=== PATIENT | male | born 1965 | race Asian ===

== ENCOUNTER 2025-03-30 07:38 | Emergency (ER) | payer OTHER ==
[~2025-03-30] VITALS: Ht 170.2 cm; Wt 70.0 kg
[2025-03-30 07:41] VITALS: O2SAT 99
[2025-03-30 08:46] LABS: CREATININE 1.0 mg/dL (0.6-1.3)
[2025-03-30 08:47] LABS: TROPONIN I HIGH SENSITIVITY < 4 ng/L (3.0-53); UREA NITROGEN BLOOD 18 mg/dL (9-23)
[2025-03-30 08:48] LABS: ASPARTATE AMINOTRANSFERASE 42 IU/L (<34)
[2025-03-30 08:49] LABS: BILIRUBIN DIRECT < 0.1 mg/dL (<=3.0); BILIRUBIN TOTAL 0.2 mg/dL (0.1-1.0); PROTEIN TOTAL 6.4 g/dL (6.0-8.3)
[2025-03-30 08:53] LABS: BASOPHILS % 0.9 % (0.0-2.0); EOSINOPHILS % 2.6 % (0.0-5.0); HEMATOCRIT. 44.2 % (42.0-52.0); HEMOGLOBIN. 14.5 g/dL (14.0-18.0); LYMPHOCYTES % 30.6 % (20.0-50.0); MEAN PLATELET VOLUME 9.6 fl (7.4-10.4); MONOCYTES % 6.4 % (2.0-8.0); NEUTROPHILS % 59.5 % (40.0-76.0); PLATELET 155 x1000/uL (130-400); RED BLOOD CELL COUNT 4.71 mill/uL (4.7-6.1); RED CELL DISTRIBUTION WIDTH 14.6 % (11.6-14.6)
[2025-03-30 09:56] LABS: INFLUENZA TYPE A Presumptive Negative (Pres. Neg.)
[2025-03-30 09:57] LABS: INFLUENZA TYPE B Presumptive Negative (Pres. Neg.)
[2025-03-30 09:59] LABS: RESPIRATORY SYNCYTIAL VIRUS Not Detected (Not Detectd)
[2025-03-30 10:05] LABS: TROPONIN I HIGH SENSITIVITY < 4 ng/L (3.0-53)
[2025-03-30 12:02] LABS: CLARITY URINE CLEAR (CLEAR); COLOR URINE YELLOW (YELLOW); GLUCOSE URINE NEGATIVE (NEGATIVE); KETONES URINE NEGATIVE (NEGATIVE); LEUKOCYTE ESTERASE URINE NEGATIVE (NEGATIVE); NITRITE URINE NEGATIVE (NEGATIVE); OCCULT BLOOD URINE NEGATIVE (NEGATIVE); PH URINE 7.0 (4.5-8.0); PROTEIN URINE NEGATIVE (NEGATIVE); SPECIFIC GRAVITY URINE 1.050 (1.005-1.030); UROBILINOGEN URINE 0.2 E.U./dL (0.2-1.0)
[2025-03-30 12:17] LABS: *AMPHETAMINES SCREEN URINE NEGATIVE (NEGATIVE); *BARBITURATES SCREEN URINE NEGATIVE (NEGATIVE); *BENZODIAZEPINES SCREEN URINE NEGATIVE (NEGATIVE); *COCAINE SCREEN URINE NEGATIVE (NEGATIVE); METHADONE URINE SCREEN NEGATIVE (NEGATIVE); OPIATES URINE SCREEN NEGATIVE (NEGATIVE)
[2025-03-30 12:18] LABS: CANNABINOID URINE SCREEN NEGATIVE (NEGATIVE); ECSTASY MDMA SCREEN URINE NEGATIVE (NEGATIVE); PHENCYCLIDINE URINE SCREEN NEGATIVE (NEGATIVE)
[2025-03-30 13:03] VITALS: BP 104/75; PULSE 84; RESP 16; TEMP 36.8; O2SAT 100
[2025-03-30] MEDS ORDERED: IOHEXOL-350 100 ML BOTTLE ONE (23:46)
== END 2025-03-30 13:07 | disposition home or self-care (01) ==
LOC: ER 07:50 → CMPBEDREQ 13:44
DX: R55 Syncope and collapse (principal); F17.200 Nicotine dependence, unspecified, uncomplicated; R06.02 Shortness of breath; Z79.899 Other long term (current) drug therapy; Z20.822 Contact with and (suspected) exposure to COVID-19
CPT/HCPCS: 80076; 80305; 80048; 81003; 80320; 83880; 83735; 85025; 85379; 87420; 84484; 87804 ×2; 36415; 71045; 71275; 70450; 93005; 99285; 87426; Q9967; Z7610; A4606; G0480